=== PATIENT | male | born 1980 | race Two or more races ===

== ENCOUNTER 2022-05-27 01:02 | Emergency (ER) | payer SELFPAY ==
[~2022-05-27] VITALS: Ht 175.3 cm; Wt 68.0 kg
--- NOTE | 2022-05-27 01:40 | NUR ---
TO ER BED 4.BIBWIFE C/O PASSING OUT WHILE WALKING TO BATHROOM, HIT FACE ON FLOOR. PT IS ALERT AND ORIENTED. RR EVEN AND NONLABORED. CONNECTED TO POX AND HEART MONITOR. VSS. AWAITING MD AGUILAR
[2022-05-27] MEDS ORDERED: ONDANSETRON HCL/PF 4 MG/2 ML VIAL IVP ONE (02:00)
[2022-05-27] MEDS ORDERED: IV NS 0.9% 1,000 ML BAG IV ONE (02:00)
[2022-05-27] MEDS ORDERED: ONDANSETRON HCL/PF 4 MG/2 ML VIAL ONE (02:01)
--- NOTE | 2022-05-27 02:20 | NUR ---
IV LINE ESTABLISHED, [id number]
--- NOTE | 2022-05-27 02:20 | NUR ---
BLOOD COLLECTED AND SENT TO LAB
--- NOTE | 2022-05-27 02:21 | NUR ---
PT TAKEN FOR CT SCAN
--- NOTE | 2022-05-27 02:21 | NUR ---
CALLED LAB FOR COVID AND FLU SWABS
[2022-05-27 02:31] LABS: BASOPHILS % (AUTO) 0.2 % (0.0-2.0); EOSINOPHILS % (AUTO) 0.1 % (0.0-6.0); HEMATOCRIT 40 % (39-51); HEMOGLOBIN 13.8 g/dL (13.5-17.5); LYMPHOCYTES # (AUTO) 0.5 K/uL (0.8-4.8); LYMPHOCYTES % (AUTO) 5.8 % (20.0-44.0); MEAN CORPUSCULAR HGB CONC 35 g/dl (31.0-36.0); MEAN CORPUSCULAR VOLUME 90 fL (80-96); MONOCYTES # (AUTO) 0.7 K/uL (0.1-1.30); MONOCYTES % (AUTO) 8.2 % (2.0-12.0); NEUTROPHILS # (AUTO) 6.8 K/uL (1.8-8.9); NEUTROPHILS % (AUTO) 85.7 % (43.0-81.0); PLATELET COUNT (AUTO) 154 K/uL (150-450)
[2022-05-27 02:38] LABS: CALCIUM, SERUM 8.3 mg/dL (8.5-10.1); CARBON DIOXIDE 24 mmol/L (21-32); CHLORIDE 100 mmol/L (98-107); GLUCOSE 141 mg/dL (74-106); POTASSIUM 3.8 mmol/L (3.5-5.1); SODIUM SERUM 132 mmol/L (136-145); UREA NITROGEN, BLOOD 14 mg/dL (7-18)
--- NOTE | 2022-05-27 02:46 | NUR ---
COVID AND INFLUENZA SWAB COLLECTED
[2022-05-27 02:57] LABS: ALANINE AMINOTRANSFERASE 40 U/L (12-78); ALBUMIN 3.3 g/dL (3.4-5.0); ALKALINE PHOSPHATASE 59 U/L (46-116); ASPARTATE AMINOTRANSFERASE 28 U/L (15-37); BILIRUBIN,DIRECT 0.2 mg/dL (0.0-0.2); BILIRUBIN,TOTAL 0.9 mg/dL (0.2-1.0); TOTAL PROTEIN, SERUM 6.9 g/dL (6.4-8.2)
[2022-05-27 03:04] LABS: BILIRUBIN,URINE 1+ (NEGATIVE); COLOR,URINE YELLOW (YELLOW); LEUKOCYTE ESTERASE ,URINE NEGATIVE (NEGATIVE); NITRITE, URINE NEGATIVE (NEGATIVE); PROTEIN,URINE 1+ mg/dl (NEGATIVE); UGLUCOSE NEGATIVE (NEGATIVE)
[2022-05-27 03:15] LABS: BACTERIA,URINE Rare /HPF (None Seen); RBC,URINE 0-2 /HPF (0-2); SQUAMOUS EPITHELIAL CELL,UR Few /HPF (None Seen); WBC,URINE 0-2 /HPF (0-3)
[2022-05-27 05:23] VITALS: BP 121/69
--- NOTE | 2022-05-27 05:23 | NUR ---
Patient discharged to home in stable condition. Written and verbal after care instructions given. Patient verbalizes understanding of instruction.
--- NOTE | 2022-05-27 05:23 | NUR ---
IV removed. Catheter intact and site benign. Pressure and 4x4 applied to site. No bleeding noted.
== END 2022-05-27 05:24 | disposition home or self-care (01) ==
LOC: ER 01:12
DX: B34.9 Viral infection, unspecified (principal); R55 Syncope and collapse; Z20.822 Contact with and (suspected) exposure to COVID-19
CPT/HCPCS: 99285; 96374; 70450; 71045; 96361; 87426; 93005; 87804; 85025; 80048; 80076; 36415; 84484 ×2; 85730; 80307; 81001; J2405; J7030; C9803